=== PATIENT | male | born 1980 | race Hispanic/Latino ===

== ENCOUNTER 2022-03-10 17:29 | Emergency (ER) | payer SELFPAY ==
[~2022-03-10] VITALS: Ht 170.2 cm; Wt 84.1 kg
[~2022-03-10 17:29] MED LIST: DEPO-MEDROL80 MG/ML IM; FLEXERIL OR; MOTRIN200 MG PO; NAPROSYN500 MG PO; TORADOL IM; TRAMADOL HCL50 MG PO
[2022-03-10 17:37] VITALS: BP 154/96
[2022-03-10 17:45] VITALS: BP 132/87
[2022-03-10 18:00] VITALS: BP 136/89
[2022-03-10 18:15] VITALS: BP 123/84
[2022-03-10] MEDS ORDERED: NAPROXEN500 MG PO (19:00)
[2022-03-10] MEDS ORDERED: FLEXERIL5 M1 PO (19:00)
[2022-03-10] MEDS ORDERED: HYDROCO/APAP1 TA9 PO (19:00)
[2022-03-10 19:02] VITALS: BP 123/84
[2022-03-16] MEDS ORDERED: ROSUVASTATIN CA10 MG PO (13:24)
== END 2022-03-10 19:09 | disposition home or self-care (01) | DRG 563 ==
LOC: ED 17:29
DX: S39.012A Strain of muscle, fascia and tendon of lower back, initial encounter (principal); F17.200 Nicotine dependence, unspecified, uncomplicated; X58.XXXA Exposure to other specified factors, initial encounter; Z20.822 Contact with and (suspected) exposure to COVID-19

== ENCOUNTER 2022-03-12 08:21 | Emergency (ER) | payer SELFPAY ==
[2022-03-12] VITALS (7 sets, daily range): BP systolic 99–118; BP diastolic 59–69
[~2022-03-12] VITALS: Ht 167.6 cm; Wt 84.0 kg
[~2022-03-12 08:21] MED LIST changes: +FLEXERIL5 M1 PO; +HYDROCO/APAP1 TA9 PO; +NAPROXEN500 MG PO
[2022-03-12] MEDS ORDERED: LISINOPRIL10 MG PO (08:40)
[2022-03-12] MEDS ORDERED: METFORMIN500 M2 PO (08:41)
[2022-03-12 09:34] LABS: HEMATOCRIT 46.1 % (39.0-50.0); HEMOGLOBIN 15.5 g/dl (14.0-18.0); IMMATURE GRANULOCYTES 0.2 % (0.0-5.0); MEAN CELL VOLUME 91.5 fL CALC (80.0-100.0); MEAN CORPUSCULAR HGB 30.8 pG CALC (26.0-32.0); MEAN CORPUSCULAR HGB CONC 33.6 g/dL CAL (32.0-36.0); NEUT# 15.59 thou/uL (1.82-7.42); RED BLOOD COUNT 5.04 mill/uL (4.70-6.10); RED CELL DISTRI WIDTH 12.2 % (11.5-15.5)
[2022-03-12 09:39] LABS: ALKALINE PHOSPHATASE 108 u/l (38-126); ANION GAP 12 (6-22 (CALC)); BILIRUBIN, TOTAL 0.7 mg/dL (0.0-1.4); BUN 13 mg/dL (9-20); BUN/CREATININE RATIO 17 (12-20 (CALC)); CARBON DIOXIDE 31 mmol/l (22-30); CHLORIDE 100 mmol/l (95-108); CREATININE 0.8 mg/dL (0.7-1.3); GFR FOR AFR.AMER. > 60 ML/MIN (>=60 (CALC)); GFR OTHER RACES > 60 ML/MIN (>=60 (CALC)); POTASSIUM 4.5 mmol/l (3.5-5.1); SGOT/AST 28 u/l (17-59); SODIUM 138 mmol/l (137-146); TOTAL PROTEIN 7.4 g/dL (6.3-8.2)
[2022-03-12 11:19] LABS: URINE BILIRUBIN - DIPSTICK NEGATIVE (NEGATIVE); URINE BLOOD DIPSTICK NEGATIVE (NEGATIVE); URINE COLOR YELLOW; URINE GLUCOSE - DIPSTICK NEGATIVE (NEGATIVE); URINE KETONE 40 mg/dL (NEGATIVE); URINE LEUK ESTERASE NEGATIVE (NEGATIVE); URINE PH 6.5 (4.5-8.0); URINE PROTEIN - DIPSTICK NEGATIVE (NEG-TRACE); URINE UROBILINOGEN - DIPSTICK 0.2 E.U./dL (0.2)
[2022-03-12 11:21] LABS: URINE NITRITE - DIPSTICK NEGATIVE (Negative)
[2022-03-12] MEDS ORDERED: BACTRIM DS1 TAB PO (11:30)
[2022-03-12] MEDS ORDERED: CEPHALEXIN500 M1 PO (11:30)
[2022-03-16] MEDS ORDERED: ROSUVASTATIN CA10 MG PO (13:24)
== END 2022-03-12 12:33 | disposition home or self-care (01) | DRG 603 ==
LOC: ED 08:21
PROVIDERS: Family Medicine
PROC: 0H98XZZ Drainage of Buttock Skin, External Approach (ICD-10-PCS; principal; 2022-03-12)
DX: L02.31 Cutaneous abscess of buttock (principal); I10 Essential (primary) hypertension; F17.210 Nicotine dependence, cigarettes, uncomplicated; B95.5 Unspecified streptococcus as the cause of diseases classified elsewhere
CPT/HCPCS: Q9967

== ENCOUNTER 2022-03-13 08:04 | Emergency (ER) | payer SELFPAY ==
[~2022-03-13] VITALS: Ht 167.6 cm; Wt 81.8 kg
[~2022-03-13 08:04] MED LIST changes: +BACTRIM DS1 TAB PO; +CEPHALEXIN500 M1 PO; +LISINOPRIL10 MG PO; +METFORMIN500 M2 PO
[2022-03-13 08:13] VITALS: BP 126/73
[2022-03-13 08:15] VITALS: BP 119/72
[2022-03-13 08:33] VITALS: BP 107/80
[2022-03-13 08:46] VITALS: BP 112/62
[2022-03-16] MEDS ORDERED: ROSUVASTATIN CA10 MG PO (13:24)
== END 2022-03-13 08:51 | disposition home or self-care (01) | DRG 951 ==
LOC: ED 08:04
DX: Z48.01 Encounter for change or removal of surgical wound dressing (principal); E11.9 Type 2 diabetes mellitus without complications; I10 Essential (primary) hypertension; Z79.84 Long term (current) use of oral hypoglycemic drugs; F17.210 Nicotine dependence, cigarettes, uncomplicated